=== PATIENT | male | born 1975 | race Caucasian/White ===

== ENCOUNTER 2017-05-05 06:05 | Observation (INO) | payer OTHER ==
[2017-05-05] MEDS ORDERED: ONDANSETRON 4 MG/2 ML VIAL IVPB ONE ×2 (07:20→12:56)
[2017-05-05] MEDS ORDERED: SODIUM CHLORIDE 1,000 ML IV STA (07:20)
[2017-05-05] MEDS ORDERED: ACETAMINOPHEN 1000 MG/100 ML VIAL (NON FORMULARY) IVPB ONE (07:20)
[2017-05-05] MEDS ORDERED: PANTOPRAZOLE SODIUM 40 MG in SODIUM CHLORIDE 100 ML IVPB ONE (07:20)
[2017-05-05] MEDS ORDERED: PANTOPRAZOLE SODIUM 40 MG VIAL ONE (07:37)
[2017-05-05] MEDS ORDERED: ONDANSETRON 4 MG/2 ML VIAL ONE ×2 (07:37→13:54)
[2017-05-05] MEDS ORDERED: morphine SULFATE 4 MG/ML VIAL IVPUSH ONE ×2 (07:57→10:36)
--- NOTE | 2017-05-05 08:03 | PDOC ---
History of Present Illness - History of Present Illness Initial Comments: Past surgical history: None reported Social history: Alcohol use. Former smoker. No reported drug use. <Chandana Cárdenas - Last Filed: 05/05/17 10:22> - History of Present Illness Initial Comments: 05/05/17 07:59 "The patient is a 41 year old male with a significant PMH of gastritis and asthma who presents to the emergency department with abdominal pain and vomiting beginning approximately 9 hours ago. The patient reports multiple episodes of NBNB vomitus. He reports his pain is a constant sensation mostly localized in the mid abdomen with no radiation. He also notes associated diarrhea and night sweats with his abdominal pain. The patient reports that he has a history of pancreatitis, though previous records at this hospital do not mention any such history. Pt states he has had multiple episodes of similar symptoms over the past 4 years. Pt is followed by GI Dr. Salguero, whom he spoke to this morning. The patient denies eating any greasy food or drinking alcohol yesterday or today. Denies any other illicit drug use. The patient denies chest pain, shortness of breath, headache and dizziness. Denies fever, chills, and constipation. Denies dysuria, frequency, urgency and hematuria. Allergies: NKA Past surgical history: Social history: No reported PCP: Dr. Corea GI: Dr. Salguero " <Ernesto Gutierrez - Last Filed: 05/07/17 10:46> - General Chief Complaint: Pain Stated Complaint: SENT BY DR. Burnette Seen by Provider: 05/05/17 07:12 Past History <Chandana Cárdenas - Last Filed: 05/05/17 10:22> - Past Medical History Anemia: No Asthma: Yes COPD: No GI Disorders: Yes (ABD. PAIN) - Immunization History Immunization Up to Date: Yes - Suicide/Smoking/Psychosocial Hx Smoking History: Former smoker Have you smoked in the past 12 months: No Number of Cigarettes Smoked Daily: 10 If you are a former smoker, when did you quit?: 10 years ago Information on smoking cessation initiated: No Hx Alcohol Use: No Drug/Substance Use Hx: No Substance Use Type: Cocaine, Marijuana Hx Substance Use Treatment: Yes <Ernesto Gutierrez - Last Filed: 05/07/17 10:46> - Past Medical History Allergies/Adverse Reactions: Allergies Allergy/AdvReac Type Severity Reaction Status Date / Time No Known Drug Allergies Allergy Verified 05/05/17 06:27 fruit Allergy Uncoded 05/05/17 06:27 Home Medications: Ambulatory Orders NK [No Known Home Medication] 05/05/17 Review of Systems - Review of Systems Comments:: 05/05/17 08:01 "GENERAL/CONSTITUTIONAL: No fever or chills. No weakness. HEAD, EYES, EARS, NOSE AND THROAT: No change in vision. No ear pain or discharge. No sore throat. CARDIOVASCULAR: No chest pain or shortness of breath. RESPIRATORY: No cough, wheezing, or hemoptysis. GASTROINTESTINAL: (+) Vomiting. (+) Diarrhea. (+) Nausea. (+) abdominal pain. No constipation. GENITOURINARY: No dysuria, frequency, or change in urination. MUSCULOSKELETAL: No joint or muscle swelling or pain. No neck or back pain. SKIN: No rash NEUROLOGIC: No headache, vertigo, loss of consciousness, or change in strength/ sensation. ENDOCRINE: No increased thirst. No abnormal weight change. HEMATOLOGIC/LYMPHATIC: No anemia, easy bleeding, or history of blood clots. ALLERGIC/IMMUNOLOGIC: No hives or skin allergy. " <Ernesto Gutierrez - Last Filed: 05/07/17 10:46> *Physical Exam - Vital Signs Last Vital Signs Temp Pulse Resp BP Pulse Ox 98.9 F 56 L 20 138/70 99 05/05/17 06:27 05/05/17 06:27 05/05/17 06:27 05/05/17 06:27 05/05/17 06:27 <Chandana Cárdenas - Last Filed: 05/05/17 10:22> - Vital Signs Last Vital Signs Temp Pulse Resp BP Pulse Ox 98.9 F 56 L 20 138/70 99 05/05/17 06:27 05/05/17 06:27 05/05/17 06:27 05/05/17 06:27 05/05/17 06:27 - Physical Exam Comments: 05/05/17 08:01 "GENERAL: Awake, alert, and fully oriented, in no acute distress HEAD: No signs of trauma EYES: PERRLA, EOMI, sclera anicteric, conjunctiva clear ENT: Auricles normal inspection, hearing grossly normal, nares patent, oropharynx clear without exudates. Moist mucosa NECK: Nontender, no stepoffs, Normal ROM, supple, no lymphadenopathy, JVD, or masses LUNGS: Breath sounds equal, clear to auscultation bilaterally. No wheezes, and no crackles HEART: Regular rate and rhythm, normal S1 and S2, no murmurs, rubs or gallops ABDOMEN: (+) Mild epigastric tenderness. Soft, normoactive bowel sounds. No guarding, no rebound. No masses EXTREMITIES: Normal range of motion, no edema. No clubbing or cyanosis. No cords , erythema, or tenderness NEUROLOGICAL: Cranial nerves II through XII intact. 5/5 strength and sensation in all extremities, Normal speech, normal gait SKIN: Warm, Dry, normal turgor, no rashes or lesions noted. " <Ernesto Gutierrez - Last Filed: 05/07/17 10:46> ED Treatment Course - LABORATORY CBC & Chemistry Diagram: 05/05/17 08:04 05/05/17 08:04 - Medications Given in the ED: ED Medications Discontinued Medications Generic Name Dose Route Start Last Admin Trade Name Lety PRN Reason Stop Dose Admin Acetaminophen 1,000 mg 05/05/17 07:20 05/05/17 07:54 Ofirmev Injection - IVPB 05/05/17 07:21 Not Given ONCE ONE Pantoprazole Sodium 40 mg/ 100 mls @ 200 mls/hr 05/05/17 07:20 05/05/17 07:49 Sodium Chloride IVPB 05/05/17 07:49 200 mls/hr ONCE ONE Administration Sodium Chloride 1,000 mls @ 1,000 mls/hr 05/05/17 07:20 05/05/17 07:49 Normal Saline - IV 05/05/17 08:19 1,000 mls/hr ASDIR STA Administration Morphine Sulfate 2 mg 05/05/17 07:57 05/05/17 08:08 Morphine Sulfate IVPUSH 05/05/17 07:58 2 mg ONCE ONE Administration Ondansetron HCl 4 mg 05/05/17 07:20 05/05/17 07:49 Zofran Injection IVPB 05/05/17 07:21 4 mg ONCE ONE Administration - Additional Consults Time Called: 09:35 Consult/PCP: Dr. Salguero (GI) <Chandana Cárdenas - Last Filed: 05/05/17 10:22> - LABORATORY CBC & Chemistry Diagram: 05/06/17 06:30 05/06/17 06:30 - RADIOLOGY Radiology Studies Ordered: Category Date Time Status ABDOMEN US [US] Stat Ultrasound 05/05/17 07:17 Ordered - Medications Given in the ED: ED Medications Discontinued Medications Generic Name Dose Route Start Last Admin Trade Name Lety PRN Reason Stop Dose Admin Acetaminophen 1,000 mg 05/05/17 07:20 05/05/17 07:54 Ofirmev Injection - IVPB 05/05/17 07:21 Not Given ONCE ONE Pantoprazole Sodium 40 mg/ 100 mls @ 200 mls/hr 05/05/17 07:20 05/05/17 07:49 Sodium Chloride IVPB 05/05/17 07:49 200 mls/hr ONCE ONE Administration Ondansetron HCl 4 mg 05/05/17 07:20 05/05/17 07:49 Zofran Injection IVPB 05/05/17 07:21 4 mg ONCE ONE Administration <Ou,Ernesto - Last Filed: 05/07/17 10:46> Medical Decision Making - Medical Decision Making 05/05/17 08:01 41 M presents to ER with epigastric pain. Likely gastritis. Possible pancreatitis flare. However, pt is well appearing and has not vomited in ER since my evaluation. - Labs, lipase - RUQ sono - Consult Dr. Salguero - IVF, pain control, zofran 05/05/17 09:40 CBC,CMP WBC 6.7 K/mm3 (4.0-10.0) 05/05/17 08:04 RBC 4.89 M/mm3 (4.00-5.60) 05/05/17 08:04 Hgb 14.2 GM/dL (11.7-16.9) 05/05/17 08:04 Hct 41.3 % (35.4-49) 05/05/17 08:04 MCV 84.3 fl (80-96) 05/05/17 08:04 MCH 29.0 pg (25.7-33.7) 05/05/17 08:04 MCHC 34.4 g/dl (32.0-35.9) 05/05/17 08:04 RDW 13.2 % (11.9-15.9) 05/05/17 08:04 Plt Count 223 K/MM3 (134-434) 05/05/17 08:04 MPV 9.2 fl (7.5-11.1) 05/05/17 08:04 Neutrophils % 90.9 % (42.8-82.8) H D 05/05/17 08:04 Lymphocytes % 7.0 % (8-40) L D 05/05/17 08:04 Monocytes % 1.9 % (3.8-10.2) L 05/05/17 08:04 Eosinophils % 0.0 % (0-4.5) D 05/05/17 08:04 Basophils % 0.2 % (0-2.0) 05/05/17 08:04 Sodium 142 mmol/L (136-145) 05/05/17 08:04 Potassium 3.8 mmol/L (3.5-5.1) 05/05/17 08:04 Chloride 108 mmol/L (98-107) H 05/05/17 08:04 Carbon Dioxide 23 mmol/L (21-32) 05/05/17 08:04 Anion Gap 11 (8-16) 05/05/17 08:04 BUN 14 mg/dL (7-18) 05/05/17 08:04 Creatinine 0.9 mg/dL (0.7-1.3) 05/05/17 08:04 Creat Clearance w eGFR > 60 (>60) 05/05/17 08:04 Random Glucose 130 mg/dL (74-106) H D 05/05/17 08:04 Calcium 8.9 mg/dL (8.5-10.1) 05/05/17 08:04 Total Bilirubin 1.5 mg/dL (0.2-1.0) H D 05/05/17 08:04 AST 13 U/L (15-37) L D 05/05/17 08:04 ALT 34 U/L (12-78) D 05/05/17 08:04 Alkaline Phosphatase 53 U/L (45-117) D 05/05/17 08:04 Creatine Kinase 92 IU/L (39-308) 05/05/17 08:04 Troponin I < 0.02 ng/ml (0.00-0.05) 05/05/17 08:04 Total Protein 6.7 g/dl (6.4-8.2) 05/05/17 08:04 Albumin 4.0 g/dl (3.4-5.0) 05/05/17 08:04 Lipase 81 U/L (73-393) 05/05/17 08:04 Labs unremarkable. US shows fatty liver, no gallbladder pathology. Spoke with Dr. Salguero, who reports pt has h/o chronic pancreatitis 2/2 persistent ETOH use. 05/05/17 12:40 Pt with persistent pain and nausea s/p 4 doses of IV morphine. Will admit for pain control at this time. Pt admitted to hospitalist service. 05/05/17 14:26 Pt encountered sleeping comfortably in stretcher. Upon awakening, he begins to ask for narcotic pain medication. Meanwhile, he has been in very good spirits, joking with staff and laughing. Pt has not been seen vomiting while in ER. Pt continues to endorse severe 10/10 pain. However, he clinically does not appear to be in extremis. My suspicion that pt is truly experiencing severe pain is very low. Case discussed in detail with admitting physician including history, physical exam and ancillary studies. Admitting physician has assumed care for the patient and will follow all pending diagnostics and complete the evaluation and treatment. <Ernesto Gutierrez - Last Filed: 05/07/17 10:46> *DC/Admit/Observation/Transfer - Attestations Scribe Attestion: 05/05/17 08:37 Documentation prepared by Chandana Cárdenas, acting as medical affairs specialist for Ernesto Gutierrez MD. <Chandana Cárdenas - Last Filed: 05/05/17 10:22> - Discharge Dispostion Admit: Yes - Attestations Physician Attestion: 05/05/17 13:24 I, Dr. Ernesto Gutierrez MD, attest that this document has been prepared under my direction and personally reviewed by me in its entirety. I further attest, that it accurately reflects all work, treatment, procedures and medical decision -making performed by me. <Ernesto Gutierrez - Last Filed: 05/07/17 10:46> Diagnosis at time of Disposition: Chronic pancreatitis due to acute alcohol intoxication - Discharge Dispostion Condition at time of disposition: Improved
[2017-05-05] MEDS ORDERED: morphine CARPU-JECT 10 MG/1 ML DISP.SYRIN ONE ×3 (08:09→13:51)
[2017-05-05 08:31] LABS: BASO % 0.2 % (0-2.0); HEMATOCRIT 41.3 % (35.4-49); HEMOGLOBIN 14.2 GM/dL (11.7-16.9); MCHC 34.4 g/dl (32.0-35.9); MEAN CELL VOLUME 84.3 fl (80-96); MEAN PLT VOLUME 9.2 fl (7.5-11.1); MONO % 1.9 % (3.8-10.2); NEUT % 90.9 % (42.8-82.8); PLATELET COUNT 223 K/MM3 (134-434); RBC 4.89 M/mm3 (4.00-5.60); RDW 13.2 % (11.9-15.9); WHITE BLOOD COUNT 6.7 K/mm3 (4.0-10.0)
[2017-05-05 08:43] LABS: ANION GAP 11 (8-16); BLOOD UREA NITROGEN 14 mg/dL (7-18); CALCIUM 8.9 mg/dL (8.5-10.1); CHLORIDE 108 mmol/L (98-107); CO2 23 mmol/L (21-32); CREATININE 0.9 mg/dL (0.7-1.3); GLUCOSE,RANDOM 130 mg/dL (74-106); LIPASE 81 U/L (73-393); POTASSIUM 3.8 mmol/L (3.5-5.1); SGOT/AST 13 U/L (15-37); SGPT/ALT 34 U/L (12-78); SODIUM 142 mmol/L (136-145)
[2017-05-05 08:47] LABS: ALK PHOS 53 U/L (45-117); BILIRUBIN,TOTAL 1.5 mg/dL (0.2-1.0); TOT PROT 6.7 g/dl (6.4-8.2)
[2017-05-05] MEDS ORDERED: morphine CARPU-JECT 4 MG/1 ML DISP.SYRIN IVPUSH ONE ×2 (09:04→11:31)
[2017-05-05] MEDS ORDERED: MAG HYDROX/AL HYDROX/SIMETH 30 ML UNIT-DOSE CUP PO ONE (09:04)
[2017-05-05 10:44] LABS: COCAINE, UR NEGATIVE ng/ml (CUTOFF=300); URINE AMPHETAMINES NEGATIVE ng/ml (CUTOFF=500); URINE BARBITURATES NEGATIVE ng/ml (CUTOFF=200); URINE BENZODIAZEPINES NEGATIVE ng/ml (CUTOFF=200)
[2017-05-05 10:45] LABS: METHADONE, UR NEGATIVE ng/ml (CUTOFF=300); OPIATES, URI POSITIVE ng/ml (CUTOFF=300); PHENCYCLIDINE,URINE NEGATIVE ng/ml (CUTOFF=25)
[2017-05-05 10:46] LABS: URINE APPEARANCE CLEAR; URINE BILIRUBIN NEGATIVE (NEGATIVE); URINE BLOOD NEGATIVE (NEGATIVE); URINE COLOR LTYELLOW; URINE GLUCOSE (UA) NEGATIVE (NEGATIVE); URINE KETONE 2+ (NEGATIVE); URINE LEUK ESTERASE NEGATIVE (NEGATIVE); URINE NITRITE NEGATIVE (NEGATIVE); URINE PROTEIN NEGATIVE (NEGATIVE); URINE UROBILINOGEN NEGATIVE mg/dL (0.2-1.0)
[2017-05-05] MEDS ORDERED: MAG HYDROX/AL HYDROX/SIMETH 30 ML UNIT-DOSE CUP ONE (10:56)
[2017-05-05] MEDS ORDERED: METOCLOPRAMIDE HCL INJECTION 10 MG/2 ML VIAL IVPUSH ONE (11:31)
[2017-05-05] MEDS ORDERED: KETOROLAC TROMETHAMINE 30 MG/1 ML VIAL IVPUSH ONE (12:46)
[2017-05-05] MEDS ORDERED: METOCLOPRAMIDE HCL INJECTION 10 MG/2 ML VIAL ONE (13:54)
--- NOTE | 2017-05-05 14:40 | HP ---
CHIEF COMPLAINT: abd pain and N/V PCP: Dr. Corea; GI: Dr. Salguero HISTORY OF PRESENT ILLNESS: 41 y/o M w/PMH of chronic pancreatitis, asthma presents to the ER with epigastric abd pain that started at approximately 10 PM last night suddenly. Pain was rated 10/10 with no radiation and described as being similar to a pain he had in the past when he was diagnosed with chronic pancreatitis. He states he it was not precipitated by food and he was sleeping at the time when the pain began. He also states he had began vomiting when pain started but vomitus was non-bloody. He estimates he has thrown up 30 times from last night until now and last episode of emesis was 20 min prior to being seen by me. He denies any changes to his diet recently. He endorses drinking 1-2 (12 ounce) beers per day and denied any drug use to me. He did state he had some chills last night with pain but no fevers. Pt denies CP, SOB, diarrhea, constipation, blood in stool, black colored stools, dysuria, blood in urine, lower extremity edema. Pt reports he last saw Dr. Salguero in November of 2015 at which point he was recommended to have yearly follow-ups. Pt reports last EGD was in 2016. ER course was notable for: (1) Mylanta, morphine, NS, zofran, protonix (2) RUQ U/S (3) Recent Travel: denies PAST MEDICAL HISTORY: chronic pancreatitis, asthma PAST SURGICAL HISTORY: vocal cord polyp removal Social History: Smoking: quit 10 years ago, smoked 1/2 ppd for "many years" before that Alcohol: drinks 1-2 beers per day (12 ounce cans) Drugs: denies drug use to me (but pt with positive opiates and marijuana in utox ) Family History: Father passed of lung ca at 73 y/o Allergies No Known Drug Allergies Allergy (Verified 05/05/17 06:27) fruit Allergy (Uncoded 05/05/17 06:27) HOME MEDICATIONS: Home Medications Medication Instructions Recorded NK [No Known Home Medication] 05/05/17 REVIEW OF SYSTEMS CONSTITUTIONAL: +chills Absent: fever, loss of appetite CARDIOVASCULAR: Absent: chest pain, peripheral edema RESPIRATORY: Absent: shortness of breath GASTROINTESTINAL: +abd pain, nausea, vomiting Absent: diarrhea, constipation, melena, hematochezia GENITOURINARY: Absent: dysuria, hematuria PHYSICAL EXAMINATION Vital Signs - 24 hr 05/05/17 05/05/17 06:27 14:24 Temperature 98.9 F 97.8 F Pulse Rate 56 L Pulse Rate [ 72 Left Apical] Respiratory 20 16 Rate Blood Pressure 138/70 Blood Pressure 122/70 [Left Arm] O2 Sat by Pulse 99 98 Oximetry (%) GENERAL: Awake, alert, and fully oriented, in no acute distress. HEAD: Normal with no signs of trauma. EYES: extraocular movements intact, sclera anicteric, conjunctiva clear. NECK: Normal range of motion, supple LUNGS: Breath sounds equal, clear to auscultation bilaterally. No wheezes, and no crackles. No accessory muscle use. HEART: Bradycardic, normal S1 and S2 without murmur, rub or gallop. ABDOMEN: soft, tender to palpation in epigastric region, negative murphys sign, normoactive bowel sounds. no guarding, no rebound. MUSCULOSKELETAL: No CVA tenderness. UPPER EXTREMITIES: warm, well-perfused. No peripheral edema. LOWER EXTREMITIES: warm, well-perfused. No peripheral edema. NEUROLOGICAL: Normal speech. Gait not observed. PSYCHIATRIC: Cooperative. Good eye contact. Appropriate mood and affect. SKIN: Warm, dry Laboratory Results - last 24 hr 05/05/17 05/05/17 05/05/17 07:21 07:21 08:04 WBC 6.7 RBC 4.89 Hgb 14.2 Hct 41.3 MCV 84.3 MCH 29.0 MCHC 34.4 RDW 13.2 Plt Count 223 MPV 9.2 Neutrophils % 90.9 H D Lymphocytes % 7.0 L D Monocytes % 1.9 L Eosinophils % 0.0 D Basophils % 0.2 Sodium Potassium Chloride Carbon Dioxide Anion Gap BUN Creatinine Creat Clearance w eGFR Random Glucose Calcium Total Bilirubin AST ALT Alkaline Phosphatase Creatine Kinase Troponin I Total Protein Albumin Lipase Urine Color Ltyellow Urine Appearance Clear Urine pH 6.0 Ur Specific [place] 1.042 H Urine Protein Negative Urine Glucose (UA) Negative Urine Ketones 2+ H Urine Blood Negative Urine Nitrite Negative Urine Bilirubin Negative Urine Urobilinogen Negative Ur Leukocyte Esterase Negative Opiates Screen Positive Methadone Screen Negative Barbiturate Screen Negative Phencyclidine Screen Negative Ur Amphetamines Screen Negative MDMA (Ecstasy) Screen Negative Benzodiazepines Screen Negative Cocaine Screen Negative U Marijuana (THC) Screen Positive 05/05/17 08:04 WBC RBC Hgb Hct MCV MCH MCHC RDW Plt Count MPV Neutrophils % Lymphocytes % Monocytes % Eosinophils % Basophils % Sodium 142 Potassium 3.8 Chloride 108 H Carbon Dioxide 23 Anion Gap 11 BUN 14 Creatinine 0.9 Creat Clearance w eGFR > 60 Random Glucose 130 H D Calcium 8.9 Total Bilirubin 1.5 H D AST 13 L D ALT 34 D Alkaline Phosphatase 53 D Creatine Kinase 92 Troponin I < 0.02 Total Protein 6.7 Albumin 4.0 Lipase 81 Urine Color Urine Appearance Urine pH Ur Specific [place] Urine Protein Urine Glucose (UA) Urine Ketones Urine Blood Urine Nitrite Urine Bilirubin Urine Urobilinogen Ur Leukocyte Esterase Opiates Screen Methadone Screen Barbiturate Screen Phencyclidine Screen Ur Amphetamines Screen MDMA (Ecstasy) Screen Benzodiazepines Screen Cocaine Screen U Marijuana (THC) Screen Imaging: RUQ U/S: 05/05/17: Impression: Borderline hepatosplenomegaly. Diffuse fatty infiltration of the liver. Active Medications Heparin Sodium (Porcine) (Heparin -) 5,000 unit SQ Q8H NICHOLAS Dextrose/Sodium Chloride (D5-1/2ns -) 1,000 mls @ 100 mls/hr IV ASDIR [facility] Last Admin: 05/05/17 15:30 Dose: 100 mls/hr Sodium Chloride (Normal Saline -) 1,000 mls @ 125 mls/hr IV ASDIR [facility] Morphine Sulfate (Morphine Injection -) 2 mg IVPUSH Q4H PRN PRN Reason: PAIN LEVEL 6-10 Ondansetron HCl (Zofran Injection) 4 mg IVPUSH Q6H PRN PRN Reason: NAUSEA Pantoprazole Sodium (Protonix -) 20 mg PO DAILY [facility] Last Admin: 05/05/17 15:30 Dose: 20 mg ASSESSMENT/PLAN: 41 y/o M w/PMH of chronic pancreatitis, asthma presents to the ER with epigastric abd pain. Admitted for observation. -N/V and abd pain secondary to possible chronic pancreatitis -NPO for now, when pt can tolerate diet will start on clears then to be advanced to low-fat diet -NS @ 125 ml/hr -GI consulted -resume creon when pt tolerates PO -if pain not improving, CT abd w/PO and IV contrast -protonix 20 mg po qd -pain control with morphine 2mg IV q4h PRN. 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 Lopez consulted -DVT ppx -heparin 5000 units sq q8h -FEN -NS @ 125 ml/hr -monitor electrolytes, replete as needed -NPO for now, when pt can tolerate diet will start on clears then to be advanced to low-fat diet -Dispo: -Admit for observation. Visit type - Emergency Visit Emergency Visit: Yes ED Registration Date: 05/05/17 Care time: The patient presented to the Emergency Department on the above date and was hospitalized for further evaluation of their emergent condition. - New Patient This patient is new to me today: Yes Date on this admission: 05/05/17 - Critical Care Critical Care patient: No
--- NOTE | 2017-05-05 14:50 | CON.GI ---
Consult Consult Specialty:: GI: Dr. Salgado covering for Dr. salguero Referred by:: Hospitalist Reason for Consultation:: Abdominal pain - History of Present Illness Chief Complaint: "I was having pain again" History of Present Illness: 41M admitted for evaluation of abdominal pain. The pain is located in the epigastrium, non radiating and associated with nausea and vomiting. He had a similar episode in 2016 that led to GI evaluation. He underwent EGD at that time performed by myself that was unrevealing as well as small bowel series ( unrevealing) MRA (normal) and MRI/MRCP (heterogeneous pancreas, mildly atrophic appearing, particularly at the head of the pancreas). This led to him undergoing follow-up EUS at [facility] with Dr. Zaida Fraser that revealed mild pancreatic changes consistent with chronic pancreatitis. He was also known to have fatty liver. Given the pancreas findings he was placed on creon and was also advised to completely abstain from alcohol and marijuana (he was advised that both of these things can precipitate GI problems) use. He was most recently seen in office by Dr. Salguero. At that time he admitted to continuing to drink daily beer (2 per day up until yesterday). He also admits to taking unprescribed percocet 2 weeks ago and continues to smoke marijuana (states 2 weeks ago). He also explains that he has been "eating like crap" and has not been adhering to the low fat diet I had advised. Currently, his pain is somewhat improved. He states being compliant with creon. The dose has been decreased. - History Source History Provided By: Patient, Medical Record Limitations to Obtaining History: No Limitations - Past Medical History Pulmonary: Yes: Asthma Gastrointestinal: Yes: Pancreatitis (Question of mild chronic pancreatitis) Hepatobiliary: Yes: Other (Fatty Liver) Psych: Yes: Addictions (Alcohol) - Alcohol/Substance Use Hx Alcohol Use: Yes (2 beers per day) History of Substance Use: reports: Marijuana, Prescription (percocet) - Smoking History Smoking history: Former smoker Have you smoked in the past 12 months: No Aproximately how many cigarettes per day: 10 If you are a former smoker, when did you quit?: 10 years ago - Social History ADL: Independent Occupation: Works in [employer] of : [employer] History of Recent Travel: No Home Medications - Allergies Allergies/Adverse Reactions: Allergies Allergy/AdvReac Type Severity Reaction Status Date / Time No Known Drug Allergies Allergy Verified 05/05/17 06:27 fruit Allergy Uncoded 05/05/17 06:27 - Home Medications Home Medications: Ambulatory Orders NK [No Known Home Medication] 05/05/17 Family Disease History - Family Disease History Family Disease History: Other: Father (: 73: lung Ca), Mother (Alive: 73, healthy), Sister (Alive, healthy), Son (None), Daughter (None) Other Family History: No family history of colorectal cancer or other GI malignancy Review of Systems - Review of Systems Constitutional: denies: Chills, Unintentional Wgt. Loss Cardiovascular: denies: Chest Pain Respiratory: denies: Cough, SOB Gastrointestinal: reports: Abdominal Pain, Bloating, Nausea, Vomiting. denies: Constipation, Diarrhea, Dysphagia, Melena, Rectal Bleeding, Vomiting Blood Physical Exam-GI Vital Signs: Vital Signs Temperature 97.8 F 05/05/17 14:24 Pulse Rate 72 05/05/17 14:24 Respiratory Rate 16 05/05/17 14:24 Blood Pressure 122/70 05/05/17 14:24 O2 Sat by Pulse Oximetry (%) 98 05/05/17 14:24 Constitutional: Yes: Calm Eyes: No: Sclera Icterus Cardiovascular: Yes: Regular Rate and Rhythm Respiratory: Yes: CTA Bilaterally Gastrointestinal Inspection: No: Ascites, Distention, Scars ...Auscultate: Yes: Normoactive Bowel Sounds ...Palpate: Yes: Tenderness (Mild tenderness to deep palpation in the epigastrium). No: Guarding, Tenderness, Rebound ...Percussion: No: Tympanitic Edema: No (No LE edema) Neurological: Yes: Alert, Oriented Labs: CBC, BMP 05/05/17 08:04 05/05/17 08:04 Laboratory Tests 05/05/17 08:04 Lipase 81 Imaging - Results Ultrasound: Report Reviewed (Fatty liver) Assessment/Plan 1. Upper abdominal pain with vomiting: ? Flare of chronic pancreatitis / ? Cannibis induced hyperemesis syndrome or combination Plan: IV hydration Minimize opiates Antiemetics Clears when he can tolerate then advance to low fat diet Can resume patient's creon when he's able, 1 pill BID Advised complete alcohol / cannibis abstinence. He also abuses prescription opiates. He will likely need detox as an outpatient. If abdominal pain not improving, CT scan of the abdomen and pelvis with PO and IV contrast 2. 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 Fatty liver: Advised alcohol cessation Low fat diet when able
[2017-05-05] MEDS: DEXTROSE 5%-0.45% SALINE 1,000 ML IV SCH (15:30)
[2017-05-05] MEDS: PANTOPRAZOLE 20 MG TABLET (FP) PO SCH (15:30)
[2017-05-05 16:08] VITALS: BMI 23.0
[2017-05-05] MEDS: ONDANSETRON 4 MG/2 ML VIAL IVPUSH PRN (16:24)
[2017-05-05] MEDS: morphine CARPU-JECT 8 MG/1 ML DISP.SYRIN IVPUSH PRN ×2 (16:24→21:52)
[2017-05-05] MEDS: SODIUM CHLORIDE 1,000 ML IV SCH (17:02)
--- NOTE | 2017-05-05 21:45 | EKG ---
Test Reason : Blood Pressure : / mmHG Vent. Rate : 053 BPM Atrial Rate : 053 BPM P-R Int : 132 ms QRS Dur : 064 ms QT Int : 468 ms P-R-T Axes : 050 050 045 degrees QTc Int : 439 ms SINUS BRADYCARDIA BORDERLINE ECG WHEN COMPARED WITH ECG OF 01-SEP-1998 10:25, VENT. RATE HAS DECREASED Confirmed by ELIJAH STOLL MD ([id number]) on 05/05/2017 9:44:26 PM Referred By: Confirmed By:ELIJAH STOLL MD
[2017-05-05] MEDS: HEPARIN NA (PORCINE) 5,000 UNITS/ML 1ML VIAL SQ SCH (21:53)
[2017-05-06] MEDS: SODIUM CHLORIDE 1,000 ML IV SCH (01:13)
[2017-05-06] MEDS: ONDANSETRON 4 MG/2 ML VIAL IVPUSH PRN (02:11)
[2017-05-06] MEDS: morphine CARPU-JECT 8 MG/1 ML DISP.SYRIN IVPUSH PRN ×3 (02:35→11:08)
[2017-05-06] MEDS: HEPARIN NA (PORCINE) 5,000 UNITS/ML 1ML VIAL SQ SCH ×3 (06:16→22:00)
--- NOTE | 2017-05-06 07:26 | PN ---
Teaching Attending Note Name of Resident: Raghav Capellan ATTENDING PHYSICIAN STATEMENT I saw and evaluated the patient. I reviewed the resident's note and discussed the case with the resident. I agree with the resident's findings and plan as documented. SUBJECTIVE: OBJECTIVE: ASSESSMENT AND PLAN:
[2017-05-06 07:59] LABS: BASO % 0.3 % (0-2.0); EOS % 0.1 % (0-4.5); HEMATOCRIT 38.1 % (35.4-49); LYMPH % 29.1 % (8-40); MCH 29.1 pg (25.7-33.7); MCHC 34.2 g/dl (32.0-35.9); MEAN PLT VOLUME 9.5 fl (7.5-11.1); MONO % 7.6 % (3.8-10.2); NEUT % 62.9 % (42.8-82.8); PLATELET COUNT 171 K/MM3 (134-434); RBC 4.48 M/mm3 (4.00-5.60); RDW 13.6 % (11.9-15.9); WHITE BLOOD COUNT 6.5 K/mm3 (4.0-10.0)
[2017-05-06 08:05] LABS: ALBUMIN 3.1 g/dl (3.4-5.0); ANION GAP 8 (8-16); BLOOD UREA NITROGEN 16 mg/dL (7-18); CALCIUM 8.3 mg/dL (8.5-10.1); CHLORIDE 112 mmol/L (98-107); CO2 26 mmol/L (21-32); GLUCOSE,RANDOM 84 mg/dL (74-106); POTASSIUM 3.8 mmol/L (3.5-5.1); SODIUM 146 mmol/L (136-145)
[2017-05-06 08:11] LABS: ALK PHOS 45 U/L (45-117); BILIRUBIN,TOTAL 1.2 mg/dL (0.2-1.0); CREATININE 0.9 mg/dL (0.7-1.3); SGOT/AST 14 U/L (15-37); SGPT/ALT 28 U/L (12-78); TOT PROT 5.4 g/dl (6.4-8.2)
[2017-05-06] MEDS: DEXTROSE 5%-0.45% SALINE 1,000 ML IV SCH ×2 (09:00→17:59)
[2017-05-06] MEDS: PANTOPRAZOLE 20 MG TABLET (FP) PO SCH (10:02)
--- NOTE | 2017-05-06 12:58 | PN ---
Physical Exam: SUBJECTIVE: Patient seen and examined. States he feels hungry but also with abdominal pain. OBJECTIVE: Vital Signs Period Temp Pulse Resp BP Sys/Meade Pulse Ox Last 24 Hr 97.8 F-98.5 F 57-72 16-20 98-122/51-70 98-100 GENERAL: The patient is awake, alert, and fully oriented, in no acute distress. LUNGS: Breath sounds equal, clear to auscultation bilaterally, no wheezes, no crackles, no accessory muscle use. HEART: Regular rate and rhythm, S1, S2 without murmur, rub or gallop. ABDOMEN: Soft, nontender, nondistended, normoactive bowel sounds, no guarding, no rebound, no hepatosplenomegaly, no masses. EXTREMITIES: 2+ pulses, warm, well-perfused, no edema. NEUROLOGICAL: Cranial nerves II through XII grossly intact. Normal speech, gait not observed. Laboratory Results - last 24 hr 05/06/17 05/06/17 06:30 06:30 WBC 6.5 RBC 4.48 Hgb 13.0 Hct 38.1 MCV 85.0 MCH 29.1 MCHC 34.2 RDW 13.6 Plt Count 171 D MPV 9.5 Neutrophils % 62.9 D Lymphocytes % 29.1 D Monocytes % 7.6 D Eosinophils % 0.1 D Basophils % 0.3 Sodium 146 H Potassium 3.8 Chloride 112 H Carbon Dioxide 26 Anion Gap 8 BUN 16 Creatinine 0.9 Creat Clearance w eGFR > 60 Random Glucose 84 D Calcium 8.3 L Total Bilirubin 1.2 H AST 14 L ALT 28 Alkaline Phosphatase 45 Total Protein 5.4 L Albumin 3.1 L D Active Medications Generic Name Dose Route Start Last Admin Trade Name Freq PRN Reason Stop Dose Admin Heparin Sodium (Porcine) 5,000 unit 05/05/17 22:00 05/06/17 06:16 Heparin - SQ 5,000 unit TID NICHOLAS Administration Dextrose/Sodium Chloride 1,000 mls @ 100 mls/hr 05/05/17 15:00 05/06/17 09:00 D5-1/2ns - IV 100 mls/hr ASDIR NICHOLAS Administration Morphine Sulfate 2 mg 05/05/17 15:37 05/06/17 11:08 Morphine Sulfate IVPUSH 2 mg Q4H PRN Administration PAIN LEVEL 6-10 Ondansetron HCl 4 mg 05/05/17 15:37 05/06/17 02:11 Zofran Injection IVPUSH 4 mg Q6H PRN Administration NAUSEA Pantoprazole Sodium 20 mg 05/05/17 15:15 05/06/17 10:02 Protonix - PO 20 mg DAILY NICHOLAS Administration ASSESSMENT/PLAN 41 year-old male with a PMH significant for asthma, polysubstance abuse (alcohol , prescription drugs, marijuana), and chronic pancreatitis. Placed on observation for abdominal pain, nausea, and vomiting. Gastroenteritis --likely viral syndrome, less likely pancreatitis flare --lipase wnl --US abdomen: diffuse fatty liver, borderline hepatosplenomegaly, otherwise unremarkable Polysubstance abuse --Utox +opiates, +marijuana --no s/s of ETOH withdrawal Elevated bilirubin --chronic FEN Fluids: D51/2 @ 100mL/hr Electrolytes; replete as indicated Nutrition: advance to clears DVT prophylaxis: subq heparin Dispo: continues to require observation. Visit type - Emergency Visit Emergency Visit: Yes ED Registration Date: 05/05/17 Care time: The patient presented to the Emergency Department on the above date and was hospitalized for further evaluation of their emergent condition. - New Patient This patient is new to me today: Yes Date on this admission: 05/07/17 - Critical Care Critical Care patient: No
[2017-05-06] MEDS: oxyCODONE HCL 5 MG TABLET PO PRN ×2 (13:34→19:06)
--- NOTE | 2017-05-06 16:38 | PN ---
GI Progress Note Subjective: GI NOte> Pain improved, Hungry and wants to eat. Reiterated need to abstain form alcohol. - Objective Vital Signs: Vital Signs Temperature 97.9 F 05/06/17 14:43 Pulse Rate 83 05/06/17 14:43 Respiratory Rate 20 05/06/17 14:43 Blood Pressure 110/57 05/06/17 14:43 O2 Sat by Pulse Oximetry (%) 100 05/06/17 15:00 Laboratory Tests 05/05/17 05/06/17 05/06/17 08:04 06:30 06:30 WBC 6.5 Total Bilirubin 1.2 H AST 14 L ALT 28 Alkaline Phosphatase 45 Lipase 81 Constitutional: No Distress ...Auscultate: Yes: Normoactive Bowel Sounds ...Palpate: Yes: Soft, Other (nontender) Labs: CBC, BMP 05/06/17 06:30 05/06/17 06:30 Problem List - Problems (1) Abdominal pain Assessment/Plan: Doubt pancreatitis. Suspect resolving viral gastroenteritis. Will advance diet. If tolerated can discharge. Reiterated need to absolutely abstain from alcohol and multisubstance abuse. Code(s): R10.9 - UNSPECIFIED ABDOMINAL PAIN (2) Nausea & vomiting Code(s): R11.2 - NAUSEA WITH VOMITING, UNSPECIFIED Qualifiers: Vomiting type: unspecified Vomiting Intractability: non-intractable Qualified Code(s): R11.2 - Nausea with vomiting, unspecified
[2017-05-06] MEDS: PANTOPRAZOLE 40 MG TABLET (FP) PO SCH (22:00)
[2017-05-07] MEDS: HEPARIN NA (PORCINE) 5,000 UNITS/ML 1ML VIAL SQ SCH (05:44)
[2017-05-07] MEDS: PANTOPRAZOLE 40 MG TABLET (FP) PO SCH (09:01)
[2017-05-07] MEDS ORDERED: SIMETHICONE 80 MG TAB.CHEW (FP) PO ONE (09:15)
[2017-05-07 11:36] VITALS: BP 108/66; PULSE 58; TEMP 98.1
--- NOTE | 2017-05-07 13:15 | PN ---
[facility] Progress Note Note: Chart, labs and imaging reviewed. Patient appears to report occasional percocet use without withdrawal symptoms noted on this admssion although utox + ve for opiates, which is unusual because percocet contains oxycodone which normally would not test positive for an opiate as it is a synthestic drug not related to heroin. but still not withdrawal noted and detox for opioids not warranted, patient appears to be in treatment for alchol use disorder, again not withdrawal noted. REcommendations: 1. treat pain as needed,f luids as per priamry team fro pancreatitis. 2. fluids, MVI, thaimine, folate ordered 3. valium and ambien prn qHs for insomnia 4. valium prn q4h for withdrawl sx, keep bp and pulse controlled WNL using valium if withdrawawl suspected. 5. REturn to [facility] for intensive outpatient counseling after discharge. 6. Consider rehab if medically stable, bed available and patient has insurance coverage and is willing. Call [facility] admissions to arrange. Davidson Lainez MD [phone]
== END 2017-05-07 12:26 | disposition home or self-care (01) ==
LOC: JER 06:05 → JERBED 12:34 → J7W 14:35
PROVIDERS: ADMIT Internal Medicine; ATTEND Nurse Practitioner Acute Care
PROC: 3E0333Z Introduction of Anti-inflammatory into Peripheral Vein, Percutaneous Approach (ICD-10-PCS; principal; 2017-05-05)
PROC: 3E033NZ Introduction of Analgesics, Hypnotics, Sedatives into Peripheral Vein, Percutaneous Approach (ICD-10-PCS; 2017-05-05)
PROC: 3E033GC Introduction of Other Therapeutic Substance into Peripheral Vein, Percutaneous Approach (ICD-10-PCS; 2017-05-05)
PROC: 3E0337Z Introduction of Electrolytic and Water Balance Substance into Peripheral Vein, Percutaneous Approach (ICD-10-PCS; 2017-05-05)
DX: K52.9 Noninfective gastroenteritis and colitis, unspecified (principal); R11.2 Nausea with vomiting, unspecified; R10.9 Unspecified abdominal pain; E80.7 Disorder of bilirubin metabolism, unspecified; K76.0 Fatty (change of) liver, not elsewhere classified; F11.10 Opioid abuse, uncomplicated; Z72.89 Other problems related to lifestyle; Z87.891 Personal history of nicotine dependence; J45.909 Unspecified asthma, uncomplicated
CPT/HCPCS: 36415; 76700-TC; 80053; 80307; 81003; 82550; 83690; 84484; 85025; 93005; 93010; 96365; 96375; 96376; 99282-25; G0378; J1644

== ENCOUNTER → 2022-05-22 | Day surgery (SDC) | payer OTHER ==
[2022-04-17 11:38] VITALS: BMI 18.6
[~2022-05-22] MED LIST: MIDAZOLAM HCL 2 MG/2 ML SINGLE DOSE VIAL ONE
[2022-05-22 11:19] VITALS: TEMP 97.5
[2022-05-22 12:27] VITALS: BP 106/64; PULSE 65; RESP 18
== END | disposition home or self-care (01) ==
LOC: JASU-ENDO 04:24
PROVIDERS: ATTEND Internal Medicine Gastroenterology
PROC: 0DB98ZX Excision of Duodenum, Via Natural or Artificial Opening Endoscopic, Diagnostic (ICD-10-PCS; 2022-05-22)
PROC: 0DB78ZX Excision of Stomach, Pylorus, Via Natural or Artificial Opening Endoscopic, Diagnostic (ICD-10-PCS; 2022-05-22)
PROC: 0DB68ZX Excision of Stomach, Via Natural or Artificial Opening Endoscopic, Diagnostic (ICD-10-PCS; 2022-05-22)
PROC: 0DJD8ZZ Inspection of Lower Intestinal Tract, Via Natural or Artificial Opening Endoscopic (ICD-10-PCS; principal; 2022-05-22 10:00)
DX: Z12.11 Encounter for screening for malignant neoplasm of colon (principal); K64.8 Other hemorrhoids; K29.50 Unspecified chronic gastritis without bleeding
CPT/HCPCS: 43239; G0121; 88305-TC; 88342-TC